=== PATIENT | male | born 1985 ===

== ENCOUNTER 2018-06-30 19:48 | Emergency (ER) | payer SELFPAY ==
[2018-06-30 19:58] VITALS: RESP 18
--- NOTE | 2018-06-30 21:12 | ED PDOC ---
Upper Extremity Pain/Injury Time Seen by Provider: 06/30/18 20:26 Chief Complaint (Nursing): Upper Extremity Problem/Injury Chief Complaint (Provider): left arm eval History Per: Patient History/Exam Limitations: no limitations Onset/Duration Of Symptoms: Days (1) Current Symptoms Are (Timing): Still Present Additional Complaint(s): 33 y/o male history of psoriasis presents for evaluation of left arm PPD skin test. Patient states he was in [place] over the [place] for the first time for 2 days, states he got a PPD placed on left forearm on Friday and was released a few hours later. Patient states he woke up this morning with pain and itching to site. Patient thinks he had previous reaction to PPD in past. Denies fever, night sweats, cough, close contact in health care settings. Past Medical History Reviewed: Historical Data, Nursing Documentation, Vital Signs Vital Signs: Last Vital Signs Temp 98.2 F 06/30/18 19:53 Pulse 60 06/30/18 19:53 Resp 18 06/30/18 19:53 BP 138/95 H 06/30/18 19:53 Pulse Ox 100 06/30/18 19:53 - Medical History Other PMH: psoriasis - Surgical History Surgical History: No Surg Hx - Family History Family History: States: No Known Family Hx - Living Arrangements Living Arrangements: With Family - Allergies Allergies/Adverse Reactions: Allergies Allergy/AdvReac Type Severity Reaction Status Date / Time No Known Allergies Allergy Verified 06/30/18 19:53 Review of Systems ROS Statement: Except As Marked, All Systems Reviewed And Found Negative Musculoskeletal: Positive for: Arm Pain (left forearm) Physical Exam - Reviewed Nursing Documentation Reviewed: Yes Vital Signs Reviewed: Yes - Physical Exam Appears: Positive for: Well, Non-toxic, No Acute Distress Head Exam: Positive for: ATRAUMATIC, NORMAL INSPECTION, NORMOCEPHALIC Skin: Positive for: Normal Color Eye Exam: Positive for: Normal appearance ENT: Positive for: Normal ENT Inspection Cardiovascular/Chest: Positive for: Regular Rate, Rhythm Respiratory: Positive for: Normal Breath Sounds Gastrointestinal/Abdominal: Positive for: Normal Exam Extremity: Positive for: Normal ROM, Other (clear vesiclar lumpy slightly raised central area volar left volar with [id number] surrounding erythema. No fluctuance, temp change noted. FROM. Distal NV/motor intact) Neurologic/Psych: Positive for: Alert, Oriented (x3) - ECG O2 Sat by Pulse Oximetry: 100 - Progress ED Course And Treament: -Benadryl PO -ice application Patient educated on findings, discharged with instructions to apply cortisone cream 1-2 times daily Advised to also take anti-histamine to prevent scratching. Erythema area circled with marker, advised to return if spreading, fever or other concerning symptoms Disposition - Clinical Impression Clinical Impression: Contact dermatitis - Patient ED Disposition Is Patient to be Admitted: No Counseled Patient/Family Regarding: Studies Performed, Diagnosis, Need For Followup - Disposition Referrals: [facility] [Outside] Disposition: Routine/Home Disposition Time: 21:58 Condition: IMPROVED Additional Instructions: Apply hydrocortisone cream 1-2 times daily Take Benadryl, Zyrtec, or Claritin as directed Ice affected area Return to ED for worsening/concerning symptoms Instructions: Contact Dermatitis (DC)
[2018-07-01 05:05] VITALS: BP 145/68; PULSE 57; TEMP 97.9; O2SAT 99
== END 2018-06-30 22:40 | disposition home or self-care (01) ==
LOC: H.ER 19:48
DX: L25.9 Unspecified contact dermatitis, unspecified cause (principal); L40.9 Psoriasis, unspecified